=== PATIENT | female | born 2000 | race African-American/Black ===

== ENCOUNTER 2021-08-22 21:06 | Emergency (ER) | payer SELFPAY ==
[~2021-08-22] VITALS: Ht 162.6 cm; Wt 92.1 kg
[2021-08-22] MEDS ORDERED: KETOROLAC TROMETHAMINE 60 MG/2 ML VIAL IM ONE (21:30)
[2021-08-22] MEDS ORDERED: ONDANSETRON HCL 4 MG ORAL DISINTEGRATING TAB PO ONE (21:30)
[2021-08-22] MEDS ORDERED: ONDANSETRON HCL 4 MG ORAL DISINTEGRATING TAB ONE (22:09)
[2021-08-22] MEDS ORDERED: KETOROLAC TROMETHAMINE 30 MG/ML VIAL ONE (22:09)
[2021-08-22] MEDS ORDERED: IBUPROFEN600 MG PO (22:11)
[2021-08-22] MEDS ORDERED: ONDANSETRON ODT4 MG PO (22:11)
[2021-08-22] MEDS ORDERED: PEPCID20 MG PO (22:11)
== END 2021-08-22 22:38 | disposition home or self-care (01) ==
LOC: FSED 21:15
DX: N93.9 Abnormal uterine and vaginal bleeding, unspecified (principal); R10.9 Unspecified abdominal pain
CPT/HCPCS: 81003; 81025; 99283; J1885; Q0162